=== PATIENT | female | born 1970 | race Caucasian/White ===

== ENCOUNTER 2017-06-17 05:18 | Inpatient (IN) | payer OTHER ==
[2017-06-17 06:32] LABS: URINE BLOOD (Dip) POC 2+ (NEGATIVE); URINE GLUCOSE (Dip) POC Negative (NEGATIVE); URINE KETONES (Dip) POC Negative (NEGATIVE); URINE LEUKOCYTE EST (Dip) POC 3+ (NEGATIVE); URINE NITRITE (Dip) POC Negative (NEGATIVE); URINE TOTAL PROTEIN POC 2+ (NEGATIVE)
[2017-06-17 06:32] LABS: URINE PH (Dip) POC 6.5 (5.0-8.5)
[2017-06-17] MEDS: SOD CHLORIDE 0.9% 1,000 ML IV ×4 (06:49→19:10)
[2017-06-17] MEDS: ONDANSETRON 4 MG INJ IV (06:50)
[2017-06-17] MEDS: KETOROLAC 30 MG INJ IV (06:50)
[2017-06-17 06:59] LABS: ADD MAN DIFF? NO
[2017-06-17 07:00] LABS: WHITE BLOOD COUNT 7.8 10^3/ul (4.8-10.8)
[2017-06-17 07:00] LABS: ABNORMAL IP MESSAGE 1; BASOPHILS % 0.3 % (0.0-2.0); EOSINOPHILS # 0.1 10^3/ul (0.0-0.5); EOSINOPHILS % 1.4 % (0.0-7.0); HEMATOCRIT 29.5 % (37.0-47.0); HEMOGLOBIN 8.4 g/dl (12.0-16.0); LYMPHOCYTES # 1.9 10^3/ul (0.8-2.9); LYMPHOCYTES % 23.8 % (15.0-51.0); MEAN CORPUSCULAR HEMOGLOBIN 17.2 pg (29.0-33.0); MEAN CORPUSCULAR HGB CONC 28.5 g/dl (32.0-37.0); MEAN CORPUSCULAR VOLUME 60.5 fl (82.0-101.0); MEAN PLATELET VOLUME 9.3 fl (7.4-10.4); MONOCYTE # 0.6 10^3/ul (0.3-0.9); MONOCYTES % 7.1 % (0.0-11.0); NEUTROPHIL # 5.2 10^3/ul (1.6-7.5); NEUTROPHILS % 67.1 % (39.0-77.0); PLATELET COUNT 311 10^3/UL (140-415); RED BLOOD COUNT 4.88 10^6/ul (4.20-5.40); RED CELL DISTRIBUTION WIDTH 19.8 % (11.5-14.5)
[2017-06-17 07:04] LABS: POSITIVE DIFF @See below
[2017-06-17 07:17] LABS: ALANINE AMINOTRANSFERASE 24 IU/L (13-69); ALBUMIN 4.4 g/dl (3.3-4.9); ALBUMIN/GLOBULIN RATIO 1.15; ALKALINE PHOSPHATASE 85 IU/L (42-121); AMYLASE 67 U/L (11-123); ANION GAP 16 (8-16); ASPARTATE AMINO TRANSFERASE 21 IU/L (15-46); BLOOD UREA NITROGEN 11 mg/dl (7-20); CALCIUM 10.8 mg/dl (8.4-10.2); CARBON DIOXIDE 24 mmol/L (21-31); CHLORIDE 106 mmol/L (97-110); CREATININE 0.71 mg/dl (0.44-1.00); GLUCOSE 101 mg/dl (70-220); LIPASE 161 U/L (23-300); POTASSIUM 4.1 mmol/L (3.5-5.1); SODIUM 142 mmol/L (135-144); TOTAL PROTEIN 8.2 g/dl (6.1-8.1)
[2017-06-17 07:26] LABS: ADD UMIC YES; UR AMORPHOUS CRYSTAL FEW /HPF (NONE SEEN); UR ASCORBIC ACID NEGATIVE (NEGATIVE); UR BACTERIA MODERATE /HPF (NONE SEEN); UR BILIRUBIN (Dip) NEGATIVE (NEGATIVE); UR BLOOD (Dip) 2+ mg/dL (NEGATIVE); UR CALCIUM OXALATE CRYSTAL MANY /HPF (NONE SEEN); UR CLARITY CLOUDY (CLEAR); UR COLOR YELLOW (YELLOW); UR GLUCOSE (Dip) NEGATIVE (NEGATIVE); UR KETONES (Dip) NEGATIVE (NEGATIVE); UR LEUKOCYTE ESTERASE (Dip) 3+ Leu/ul (NEGATIVE); UR MUCUS FEW /HPF (NONE SEEN); UR NITRITE (Dip) NEGATIVE (NEGATIVE); UR RBC 48 /HPF (0-5); UR SPECIFIC GRAVITY (Dip) 1.013 (1.003-1.030); UR SQUAMOUS EPITHELIAL CELL FEW /HPF (FEW); UR TOTAL PROTEIN (Dip) 2+ mg/dl (NEGATIVE); UR UROBILINOGEN (Dip) NEGATIVE (NEGATIVE); UR WBC > 182 /HPF (0-5)
[2017-06-17] MEDS: morphine 2 MG INJ IV ×2 (07:45→09:29)
[2017-06-17] MEDS: CEFTRIAXONE 1 GM/50 ML (PMX) 50 ML IVPB (09:29)
[2017-06-17] MEDS ORDERED: ONDANSETRON 4 MG INJ IV (10:30)
[2017-06-17] MEDS ORDERED: morphine 2 MG INJ IV (10:30)
[2017-06-17] MEDS ORDERED: ACETAMINOPHEN 325 MG TAB PO (10:30)
[2017-06-17] MEDS: DOCUSATE SODIUM 100 MG CAP PO ×2 (10:48→21:26)
[2017-06-17] MEDS: KETOROLAC 15 MG INJ IV ×3 (10:49→22:49)
[2017-06-17] MEDS: morphine LIQ (10 MG/5 ML) CUP PO (16:46)
[2017-06-17 21:05] LABS: INR 0.91; PROTIME 12.3 Sec (11.9-14.9)
[2017-06-17 21:06] LABS: PARTIAL THROMBOPLASTIN TIME 29.6 Sec (25.0-35.0)
[2017-06-17] MEDS: ACETAMINOPHEN 325 MG TAB PO (21:42)
[2017-06-18] MEDS: SOD CHLORIDE 0.9% 1,000 ML IV ×3 (03:00→15:43)
[2017-06-18] MEDS: KETOROLAC 15 MG INJ IV (04:57)
[2017-06-18 06:37] LABS: ANION GAP 10 (8-16); BLOOD UREA NITROGEN 9 mg/dl (7-20); CALCIUM 9.5 mg/dl (8.4-10.2); CARBON DIOXIDE 24 mmol/L (21-31); CHLORIDE 115 mmol/L (97-110); CREATININE 0.64 mg/dl (0.44-1.00); GLUCOSE 80 mg/dl (70-220); POTASSIUM 3.9 mmol/L (3.5-5.1); SODIUM 145 mmol/L (135-144)
[2017-06-18 07:18] LABS: HEMOGLOBIN A1C 5.7 % (0-5.9)
[2017-06-18] MEDS ORDERED: VITAMIN A & D 5 GM OINT PACKET TOP (08:35)
[2017-06-18 08:36] LABS: WHITE BLOOD COUNT 4.9 10^3/ul (4.8-10.8)
[2017-06-18 08:36] LABS: ABNORMAL IP MESSAGE 1; HEMATOCRIT 24.1 % (37.0-47.0); MEAN CORPUSCULAR HEMOGLOBIN 17.4 pg (29.0-33.0); MEAN CORPUSCULAR HGB CONC 28.6 g/dl (32.0-37.0); MEAN CORPUSCULAR VOLUME 60.7 fl (82.0-101.0); MEAN PLATELET VOLUME 9.5 fl (7.4-10.4); PLATELET COUNT 242 10^3/UL (140-415); RED BLOOD COUNT 3.97 10^6/ul (4.20-5.40); RED CELL DISTRIBUTION WIDTH 19.6 % (11.5-14.5)
[2017-06-18 08:38] LABS: POSITIVE DIFF @See below
[2017-06-18 08:41] LABS: ADD MAN DIFF? YES; HEMOGLOBIN 6.9 g/dl (12.0-16.0)
[2017-06-18] MEDS: MULTIVITAMINS THERAPEUTIC TAB PO (09:01)
[2017-06-18] MEDS: DOCUSATE SODIUM 100 MG CAP PO ×2 (09:01→20:49)
[2017-06-18] MEDS: MAGNESIUM OXIDE 400 MG TAB PO (09:01)
[2017-06-18] MEDS: CEFTRIAXONE 1 GM/50 ML (PMX) 50 ML IVPB (09:02)
[2017-06-18 10:53] LABS: ANISOCYTOSIS 3+ (0-0); BAND NEUTROPHILS % (M) 1 % (0-4); EOSINOPHILS % (M) 2 % (0-7); HYPOCHROMASIA 3+ (0-0); LYMPHOCYTES #M 1.7 10^3/ul (0.8-2.9); LYMPHOCYTES % (M) 36 % (15-51); MICROCYTOSIS 3+ (0-0); MONOCYTE #M 0.3 10^3/ul (0.3-0.9); MONOCYTES % (M) 7 % (0-11); PLATELET ESTIMATE NORMAL; POIKILOCYTOSIS 1+ (0-0); POLYCHROMASIA 1+ (0-0); SEG NEUT #M 2.7 10^3/ul (1.6-7.5); SEGMENTED NEUTROPHILS (M) % 55 % (39-77); SMUDGE%M 5 % (0-0)
[2017-06-18 11:09] LABS: IRON < 10 ug/dl (35-150)
[2017-06-18 11:17] LABS: TOTAL IRON BINDING CAPACITY 348 ug/dl (241-421)
[2017-06-18] MEDS: SOD FERRIC GLUC COMPLX 125 MG in SOD CHLORIDE 0.9% 100 ML IVPB (12:44)
[2017-06-18 14:33] LABS: ADD MAN DIFF? NO
[2017-06-18 14:37] LABS: WHITE BLOOD COUNT 5.3 10^3/ul (4.8-10.8)
[2017-06-18 14:37] LABS: ABNORMAL IP MESSAGE 1; BASOPHILS % 0.2 % (0.0-2.0); EOSINOPHILS # 0.1 10^3/ul (0.0-0.5); EOSINOPHILS % 1.5 % (0.0-7.0); HEMATOCRIT 25.3 % (37.0-47.0); HEMOGLOBIN 7.1 g/dl (12.0-16.0); LYMPHOCYTES % 37.5 % (15.0-51.0); MEAN CORPUSCULAR HGB CONC 28.1 g/dl (32.0-37.0); MEAN CORPUSCULAR VOLUME 60.5 fl (82.0-101.0); MEAN PLATELET VOLUME 9.2 fl (7.4-10.4); MONOCYTE # 0.4 10^3/ul (0.3-0.9); MONOCYTES % 7.9 % (0.0-11.0); NEUTROPHIL # 2.8 10^3/ul (1.6-7.5); NEUTROPHILS % 52.5 % (39.0-77.0); PLATELET COUNT 247 10^3/UL (140-415); RED BLOOD COUNT 4.18 10^6/ul (4.20-5.40); RED CELL DISTRIBUTION WIDTH 19.7 % (11.5-14.5)
[2017-06-18 14:46] LABS: POSITIVE DIFF @See below
[2017-06-18 15:53] LABS: FREE T4 (FREE THYROXINE) 1.16 ng/dl (0.64-1.79)
[2017-06-18 16:07] LABS: THYROID STIMULATING HORMONE 0.925 MIU/L (0.465-4.680)
[2017-06-18 16:09] LABS: IMMEDIATE SPIN CROSSMATCH 1 2
[2017-06-18] MEDS: SOD CHLORIDE 0.9% 250 ML IV* (16:20)
[2017-06-18] MEDS: ACETAMINOPHEN 325 MG TAB PO (19:08)
[2017-06-18] MEDS: LORAZEPAM 2 MG INJ IV (20:50)
[2017-06-18] MEDS ORDERED: NITROGLYCERIN (SL) 0.4 MG TAB SL (21:00)
[2017-06-18 21:44] LABS: TROPONIN-I < 0.012 ng/ml (0.00-0.12)
[2017-06-19 05:40] LABS: ADD MAN DIFF? NO
[2017-06-19 05:43] LABS: WHITE BLOOD COUNT 5.8 10^3/ul (4.8-10.8)
[2017-06-19 05:43] LABS: ABNORMAL IP MESSAGE 1; BASOPHILS % 0.3 % (0.0-2.0); EOSINOPHILS # 0.1 10^3/ul (0.0-0.5); EOSINOPHILS % 2.4 % (0.0-7.0); HEMATOCRIT 27.3 % (37.0-47.0); HEMOGLOBIN 7.8 g/dl (12.0-16.0); LYMPHOCYTES # 2.5 10^3/ul (0.8-2.9); LYMPHOCYTES % 42.3 % (15.0-51.0); MEAN CORPUSCULAR HEMOGLOBIN 18.1 pg (29.0-33.0); MEAN CORPUSCULAR HGB CONC 28.6 g/dl (32.0-37.0); MEAN CORPUSCULAR VOLUME 63.2 fl (82.0-101.0); MEAN PLATELET VOLUME 9.7 fl (7.4-10.4); MONOCYTE # 0.5 10^3/ul (0.3-0.9); MONOCYTES % 9.2 % (0.0-11.0); NEUTROPHIL # 2.7 10^3/ul (1.6-7.5); NEUTROPHILS % 45.5 % (39.0-77.0); PLATELET COUNT 261 10^3/UL (140-415); RED BLOOD COUNT 4.32 10^6/ul (4.20-5.40); RED CELL DISTRIBUTION WIDTH 22.3 % (11.5-14.5)
[2017-06-19 05:46] LABS: POSITIVE DIFF @See below
[2017-06-19] MEDS: SOD CHLORIDE 0.9% 1,000 ML IV ×2 (06:08→18:23)
[2017-06-19 06:09] LABS: ANION GAP 12 (8-16); BLOOD UREA NITROGEN 7 mg/dl (7-20); CALCIUM 9.8 mg/dl (8.4-10.2); CARBON DIOXIDE 24 mmol/L (21-31); CHLORIDE 112 mmol/L (97-110); CREATININE 0.62 mg/dl (0.44-1.00); GLUCOSE 84 mg/dl (70-220); POTASSIUM 3.8 mmol/L (3.5-5.1); SODIUM 144 mmol/L (135-144)
[2017-06-19] MEDS: ACETAMINOPHEN 325 MG TAB PO ×2 (08:21→15:10)
[2017-06-19] MEDS: MAGNESIUM OXIDE 400 MG TAB PO (09:00)
[2017-06-19] MEDS: MULTIVITAMINS THERAPEUTIC TAB PO (09:00)
[2017-06-19] MEDS: DOCUSATE SODIUM 100 MG CAP PO ×2 (09:00→21:12)
[2017-06-19 10:20] LABS: IONIZED CALCIUM 1.5 mmol/L (1.1-1.4)
[2017-06-19] MEDS ORDERED: FENTAnyl 50 MCG/ML VIAL IV (12:00)
[2017-06-19] MEDS ORDERED: ONDANSETRON 4 MG INJ IV (12:00)
[2017-06-19] MEDS ORDERED: DIPHENHYDRAMINE 50 MG INJ IV (12:00)
[2017-06-19] MEDS ORDERED: PROCHLORPERAZINE 10 MG INJ IV (12:00)
[2017-06-19] MEDS ORDERED: HYDROmorphONE (0.2 MG/ML) 10ML SYG IV ×3 (12:00)
[2017-06-19] MEDS ORDERED: FENTAnyl 50 MCG/ML VIAL (12:23)
[2017-06-19] MEDS ORDERED: LIDOCAINE 2% (SDV) 5 ML INJ (12:23)
[2017-06-19] MEDS ORDERED: PROPOFOL 20 ML (12:23)
[2017-06-19] MEDS ORDERED: MIDAZOLAM 1 MG/ML 2 ML INJ (12:23)
[2017-06-19] MEDS ORDERED: ONDANSETRON 4 MG INJ (12:42)
[2017-06-19] MEDS ORDERED: DEXAMETHASONE 4 MG/ML 1 ML INJ (12:42)
[2017-06-19] MEDS ORDERED: FAMOTIDINE 20 MG INJ (12:42)
[2017-06-19] MEDS ORDERED: EPHEDrine SULFATE 50 MG/5 ML SYG (13:00)
[2017-06-19] MEDS: ONDANSETRON 4 MG INJ IV (13:58)
[2017-06-19] MEDS: MEPERIDINE 25 MG INJ IV (13:58)
[2017-06-19] MEDS: CEFTRIAXONE 1 GM/50 ML (PMX) 50 ML IVPB (15:04)
[2017-06-19] MEDS: FERROUS SULFATE (EC) 325 MG TAB PO ×2 (15:10→21:12)
[2017-06-19] MEDS: ASCORBIC ACID 500 MG TAB PO ×2 (15:11→21:12)
[2017-06-19] MEDS: SOD FERRIC GLUC COMPLX 125 MG in SOD CHLORIDE 0.9% 100 ML IVPB (15:48)
[2017-06-19 20:19] LABS: TROPONIN-I < 0.012 ng/ml (0.00-0.12)
[2017-06-19] MEDS: KETOROLAC 15 MG INJ IV (21:17)
[2017-06-20] MEDS: SOD CHLORIDE 0.9% 1,000 ML IV ×2 (01:32→08:59)
[2017-06-20 05:37] LABS: ADD MAN DIFF? NO
[2017-06-20 05:41] LABS: WHITE BLOOD COUNT 10.3 10^3/ul (4.8-10.8)
[2017-06-20 05:41] LABS: ABNORMAL IP MESSAGE 1; BASOPHILS % 0.1 % (0.0-2.0); EOSINOPHILS % 0.3 % (0.0-7.0); HEMATOCRIT 28.2 % (37.0-47.0); HEMOGLOBIN 8.1 g/dl (12.0-16.0); LYMPHOCYTES # 2.6 10^3/ul (0.8-2.9); LYMPHOCYTES % 24.9 % (15.0-51.0); MEAN CORPUSCULAR HEMOGLOBIN 18.2 pg (29.0-33.0); MEAN CORPUSCULAR HGB CONC 28.7 g/dl (32.0-37.0); MEAN CORPUSCULAR VOLUME 63.2 fl (82.0-101.0); MEAN PLATELET VOLUME 9.3 fl (7.4-10.4); MONOCYTE # 0.8 10^3/ul (0.3-0.9); MONOCYTES % 7.3 % (0.0-11.0); NEUTROPHIL # 6.9 10^3/ul (1.6-7.5); NEUTROPHILS % 66.9 % (39.0-77.0); PLATELET COUNT 283 10^3/UL (140-415); RED BLOOD COUNT 4.46 10^6/ul (4.20-5.40); RED CELL DISTRIBUTION WIDTH 22.2 % (11.5-14.5)
[2017-06-20 05:46] LABS: POSITIVE DIFF @See below
[2017-06-20 06:06] LABS: ANION GAP 11 (8-16); BLOOD UREA NITROGEN 11 mg/dl (7-20); CALCIUM 10.2 mg/dl (8.4-10.2); CARBON DIOXIDE 23 mmol/L (21-31); CHLORIDE 110 mmol/L (97-110); CREATININE 0.81 mg/dl (0.44-1.00); GLUCOSE 88 mg/dl (70-220); SODIUM 140 mmol/L (135-144)
[2017-06-20] MEDS: ASCORBIC ACID 500 MG TAB PO (08:54)
[2017-06-20] MEDS: FERROUS SULFATE (EC) 325 MG TAB PO (08:55)
[2017-06-20] MEDS: CEFTRIAXONE 1 GM/50 ML (PMX) 50 ML IVPB (08:55)
[2017-06-20] MEDS: MAGNESIUM OXIDE 400 MG TAB PO (08:55)
[2017-06-20] MEDS: MULTIVITAMINS THERAPEUTIC TAB PO (08:55)
[2017-06-20] MEDS: DOCUSATE SODIUM 100 MG CAP PO (08:55)
[2017-06-20] MEDS: ACETAMINOPHEN 325 MG TAB PO (08:58)
[2017-06-21 17:51] LABS: PTH CALCIUM 9.3 mg/dL (8.6-10.2); PTH CALCIUM 9.5 mg/dL (8.6-10.2)
[2017-06-21 18:36] LABS: PTH INTACT 113 pg/mL (14-64); PTH INTACT 79 pg/mL (14-64)
== END 2017-06-20 13:05 | disposition home or self-care (01) | DRG 690 ==
LOC: FTE 05:18 → MS1 10:23
PROC: 0TF3XZZ Fragmentation in Right Kidney Pelvis, External Approach (ICD-10-PCS; principal; 2017-06-19 12:19)
PROC: 30233N1 Transfusion of Nonautologous Red Blood Cells into Peripheral Vein, Percutaneous Approach (ICD-10-PCS; 2017-06-19 12:19)
DX: N13.6 Pyonephrosis (principal); E83.52 Hypercalcemia; K80.20 Calculus of gallbladder without cholecystitis without obstruction; Z87.442 Personal history of urinary calculi; D50.9 Iron deficiency anemia, unspecified; B96.20 Unspecified Escherichia coli [E. coli] as the cause of diseases classified elsewhere
CPT/HCPCS: 36430; 71045; 74018; 74176; 80048; 80053; 81001; 81003; 82150; 82330; 83036; 83540; 83690; 83735; 83970; 84439; 84443; 84484; 85025; 85610; 85730; 86850; 86900; 86901; 86920; 87086; 93005

== ENCOUNTER 2018-02-02 10:44 | Day surgery (SDC) | payer OTHER ==
[2018-02-02] MEDS ORDERED: CEFAZOLIN 1 GM INJ (11:34)
[2018-02-02] MEDS ORDERED: PROPOFOL 20 ML (11:34)
[2018-02-02] MEDS ORDERED: ROCURONIUM 50 MG INJ ×2 (11:34→13:55)
[2018-02-02] MEDS ORDERED: MIDAZOLAM 1 MG/ML 2 ML INJ (11:34)
[2018-02-02] MEDS ORDERED: FENTAnyl 50 MCG/ML VIAL ×4 (11:34→17:48)
[2018-02-02] MEDS: CEFAZOLIN 1 GM/50 ML (PMX) 50 ML IVPB (12:30)
[2018-02-02] MEDS ORDERED: DIPHENHYDRAMINE 50 MG INJ IV (12:30)
[2018-02-02] MEDS ORDERED: LABETALOL HCL 20MG INJ IV (12:30)
[2018-02-02] MEDS ORDERED: FENTAnyl 50 MCG/ML VIAL IV ×4 (12:30→18:00)
[2018-02-02] MEDS ORDERED: EPHEDrine SULFATE 50 MG/5 ML SYG IV (12:30)
[2018-02-02] MEDS ORDERED: HYDROmorphONE 1 MG/5 ML IV SYRINGE IV ×3 (12:30)
[2018-02-02] MEDS ORDERED: OXYCODONE/ACETAMINOPHEN (5/325) TAB PO ×2 (12:30)
[2018-02-02] MEDS ORDERED: hydrALAzine 20 MG INJ IV (12:30)
[2018-02-02] MEDS ORDERED: MEPERIDINE 25 MG INJ IV (12:30)
[2018-02-02] MEDS ORDERED: ONDANSETRON 4 MG INJ IV ×2 (12:30→18:00)
[2018-02-02 12:34] LABS: ADD UMIC YES; UR ASCORBIC ACID NEGATIVE (NEGATIVE); UR BACTERIA FEW /HPF (NONE SEEN); UR BILIRUBIN (Dip) NEGATIVE (NEGATIVE); UR BLOOD (Dip) 3+ mg/dL (NEGATIVE); UR CLARITY CLEAR (CLEAR); UR COLOR YELLOW (YELLOW); UR GLUCOSE (Dip) NEGATIVE (NEGATIVE); UR KETONES (Dip) NEGATIVE (NEGATIVE); UR LEUKOCYTE ESTERASE (Dip) 1+ Leu/ul (NEGATIVE); UR NITRITE (Dip) NEGATIVE (NEGATIVE); UR RBC 2 /HPF (0-5); UR TOTAL PROTEIN (Dip) NEGATIVE (NEGATIVE); UR UROBILINOGEN (Dip) NEGATIVE (NEGATIVE); UR WBC 8 /HPF (0-5)
[2018-02-02] MEDS: OXYMETAZOLINE 0.05% 15 ML NAS SPRAY NASAL (12:41)
[2018-02-02] MEDS: LIDOCAINE 1%/EPI 30 ML INJ (12:41)
[2018-02-02] MEDS ORDERED: DEXAMETHASONE 4 MG/ML 1 ML INJ (13:11)
[2018-02-02] MEDS ORDERED: ONDANSETRON 4 MG INJ ×2 (13:11→17:48)
[2018-02-02] MEDS ORDERED: METOCLOPRAMIDE 10 MG INJ (13:11)
[2018-02-02] MEDS ORDERED: GLYCOPYRROLATE 0.4 MG INJ (13:39)
[2018-02-02] MEDS ORDERED: NEOSTIGMINE 3 MG/3 ML SYRINGE (13:39)
[2018-02-02] MEDS ORDERED: ACETAMINOPHEN 1000MG/100ML IV 100 ML (15:15)
[2018-02-02] MEDS ORDERED: BACITRACIN/POLYMYXIN 28.35 GM OINT TOP (15:48)
[2018-02-02] MEDS: BACITRACIN/POLYMYXIN 0.9 GM OINT TOP (15:54)
[2018-02-02] MEDS: FENTAnyl 50 MCG/ML VIAL IV ×2 (18:00→19:33)
[2018-02-02] MEDS ORDERED: NEOMYC/POLYMYX/BACIT 30 GM OINT TOP (19:00)
[2018-02-02] MEDS: NEOMYC/POLYMYX/BACIT 30 GM OINT TOP (19:32)
[2018-02-02] MEDS: METOCLOPRAMIDE 10 MG INJ IV (19:32)
== END 2018-02-02 19:53 | disposition home or self-care (01) ==
LOC: SDS 10:44
DX: D35.1 Benign neoplasm of parathyroid gland (principal); J34.2 Deviated nasal septum; J34.3 Hypertrophy of nasal turbinates
CPT/HCPCS: 30140; 81001; 88307; 88331

== ENCOUNTER 2018-02-23 13:52 | Inpatient (IN) | payer OTHER ==
[2018-02-23 15:02] LABS: ADD MAN DIFF? NO
[2018-02-23 15:18] LABS: BASOPHILS % 0.2 % (0.0-2.0); EOSINOPHILS % 0.2 % (0.0-7.0); HEMATOCRIT 32.9 % (37.0-47.0); HEMOGLOBIN 9.8 g/dl (12.0-16.0); LYMPHOCYTES # 1.4 10^3/ul (0.8-2.9); LYMPHOCYTES % 10.9 % (15.0-51.0); MEAN CORPUSCULAR HEMOGLOBIN 19.6 pg (29.0-33.0); MEAN CORPUSCULAR HGB CONC 29.8 g/dl (32.0-37.0); MEAN CORPUSCULAR VOLUME 65.7 fl (82.0-101.0); MEAN PLATELET VOLUME 9.6 fl (7.4-10.4); MONOCYTE # 1.1 10^3/ul (0.3-0.9); MONOCYTES % 8.3 % (0.0-11.0); NEUTROPHIL # 10.4 10^3/ul (1.6-7.5); PLATELET COUNT 291 10^3/UL (140-415); RED BLOOD COUNT 5.01 10^6/ul (4.20-5.40); RED CELL DISTRIBUTION WIDTH 17.8 % (11.5-14.5)
[2018-02-23 15:36] LABS: INR 0.99; PROTIME 13.2 Sec (11.9-14.9)
[2018-02-23 15:37] LABS: BLOOD UREA NITROGEN 11 mg/dl (7-20); CALCIUM 9.4 mg/dl (8.4-10.2); CARBON DIOXIDE 21 mmol/L (21-31); CHLORIDE 106 mmol/L (97-110); GLUCOSE 105 mg/dl (70-220); PARTIAL THROMBOPLASTIN TIME 32.6 Sec (23.0-35.0); POTASSIUM 3.7 mmol/L (3.5-5.1); SODIUM 137 mmol/L (135-144)
[2018-02-23] MEDS: ACETAMINOPHEN 325 MG TAB PO (15:37)
[2018-02-23] MEDS: CEFEPIME 2GM/50 ML (PMX) 50 ML IVPB (15:37)
[2018-02-23] MEDS: SODIUM CHLORIDE 0.9% 1L BAG IV* (15:38)
[2018-02-23 15:48] LABS: TROPONIN-I < 0.012 ng/ml (0.000-0.120)
[2018-02-23 15:50] LABS: IONIZED CALCIUM 1.2 mmol/L (1.1-1.4)
[2018-02-23 16:03] LABS: ADD UMIC YES; UR ASCORBIC ACID NEGATIVE (NEGATIVE); UR BACTERIA MODERATE /HPF (NONE SEEN); UR BILIRUBIN (Dip) NEGATIVE (NEGATIVE); UR BLOOD (Dip) 2+ mg/dL (NEGATIVE); UR CLARITY CLOUDY (CLEAR); UR COLOR YELLOW (YELLOW); UR GLUCOSE (Dip) NEGATIVE (NEGATIVE); UR KETONES (Dip) TRACE mg/dL (NEGATIVE); UR LEUKOCYTE ESTERASE (Dip) 3+ Leu/ul (NEGATIVE); UR MUCUS FEW /HPF (NONE SEEN); UR NITRITE (Dip) POSITIVE (NEGATIVE); UR RBC 45 /HPF (0-5); UR SPECIFIC GRAVITY (Dip) 1.015 (1.003-1.030); UR SQUAMOUS EPITHELIAL CELL MODERATE /HPF (FEW); UR TOTAL PROTEIN (Dip) 2+ mg/dl (NEGATIVE); UR UROBILINOGEN (Dip) NEGATIVE (NEGATIVE); UR WBC > 182 /HPF (0-5)
[2018-02-23] MEDS: VANCOMYCIN 1 GM (PMX) 250 ML IVPB (16:49)
[2018-02-23] MEDS: IBUPROFEN 800 MG TAB PO (18:48)
[2018-02-23] MEDS: SOD CHLORIDE 0.9% 1,000 ML IV ×2 (19:42→22:01)
[2018-02-23] MEDS ORDERED: ONDANSETRON 4 MG INJ IV (20:30)
[2018-02-23] MEDS ORDERED: ACETAMINOPHEN 325 MG TAB PO (20:30)
[2018-02-23] MEDS ORDERED: BISACODYL (EC) 5 MG TAB PO (22:00)
[2018-02-23] MEDS ORDERED: NACL 0.9% 3 ML SYG IV (22:00)
[2018-02-23] MEDS ORDERED: HYDROmorphONE 0.5 MG/0.5 ML SYG IV (22:00)
[2018-02-23] MEDS ORDERED: DOCUSATE SODIUM 100 MG CAP PO (22:00)
[2018-02-24 00:08] LABS: LACTIC ACID 0.5 mmol/L (0.5-2.0)
[2018-02-24] MEDS: ACETAMINOPHEN 325 MG TAB PO ×3 (00:53→11:38)
[2018-02-24] MEDS: LEVOFLOXACIN 750MG/D5W (PMX) 150 ML IVPB ×2 (01:12→23:07)
[2018-02-24] MEDS ORDERED: LORAZEPAM 2 MG INJ (02:51)
[2018-02-24] MEDS: ONDANSETRON 4 MG INJ IV ×2 (02:53→15:19)
[2018-02-24] MEDS: LORAZEPAM 2 MG INJ IV (02:58)
[2018-02-24] MEDS ORDERED: ALBUTEROL/IPRATROPIUM (NEB) 3 ML AMP HHN (03:00)
[2018-02-24 10:04] LABS: ANION GAP 10 (5-13)
[2018-02-24] MEDS: SOD CHLORIDE 0.9% 1,000 ML IV ×2 (11:07→23:05)
[2018-02-24] MEDS: ZOLPIDEM 5 MG TAB PO ×2 (15:22→23:04)
[2018-02-24 16:02] LABS: ADD MAN DIFF? NO
[2018-02-24 16:05] LABS: BASOPHILS % 0.1 % (0.0-2.0); EOSINOPHILS % 0.2 % (0.0-7.0); HEMATOCRIT 27.1 % (37.0-47.0); HEMOGLOBIN 7.9 g/dl (12.0-16.0); LYMPHOCYTES # 1.4 10^3/ul (0.8-2.9); LYMPHOCYTES % 15.8 % (15.0-51.0); MEAN CORPUSCULAR HEMOGLOBIN 19.7 pg (29.0-33.0); MEAN CORPUSCULAR HGB CONC 29.2 g/dl (32.0-37.0); MEAN CORPUSCULAR VOLUME 67.6 fl (82.0-101.0); MONOCYTE # 0.8 10^3/ul (0.3-0.9); MONOCYTES % 8.9 % (0.0-11.0); NEUTROPHIL # 6.4 10^3/ul (1.6-7.5); NEUTROPHILS % 74.3 % (39.0-77.0); PLATELET COUNT 192 10^3/UL (140-415); RED BLOOD COUNT 4.01 10^6/ul (4.20-5.40); RED CELL DISTRIBUTION WIDTH 17.9 % (11.5-14.5)
[2018-02-24 16:05] LABS: WHITE BLOOD COUNT 8.6 10^3/ul (4.8-10.8)
[2018-02-24 16:28] LABS: HEMOGLOBIN A1C 5.6 % (0-5.9)
[2018-02-24 16:29] LABS: ALANINE AMINOTRANSFERASE 16 IU/L (13-69); ALBUMIN 3.2 g/dl (3.3-4.9); ALKALINE PHOSPHATASE 63 IU/L (42-121); ANION GAP 9 (5-13); ASPARTATE AMINO TRANSFERASE 12 IU/L (15-46); BILIRUBIN,INDIRECT 0.3 mg/dl (0-1.1); BILIRUBIN,TOTAL 0.3 mg/dl (0.2-1.3); BLOOD UREA NITROGEN 6 mg/dl (7-20); CALCIUM 7.9 mg/dl (8.4-10.2); CARBON DIOXIDE 19 mmol/L (21-31); CHLORIDE 110 mmol/L (97-110); CHOL/HDL RATIO 3.6 RATIO; CHOLESTEROL 146 mg/dl (100-200); CREATININE 0.62 mg/dl (0.44-1.00); GLUCOSE 98 mg/dl (70-220); HDL CHOLESTEROL 40 mg/dl (34-88); LDL CHOLESTEROL,CALCULATED 88 mg/dl; MAGNESIUM 1.8 mg/dl (1.7-2.5); SODIUM 138 mmol/L (135-144); TOTAL PROTEIN 6.4 g/dl (6.1-8.1); TRIGLYCERIDES 90 mg/dl (0-149)
[2018-02-24 16:33] LABS: IRON < 10 ug/dl (35-150)
[2018-02-24 16:36] LABS: TOTAL IRON BINDING CAPACITY 341 ug/dl (241-421)
[2018-02-24] MEDS: IBUPROFEN 400 MG TAB PO (16:43)
[2018-02-24 17:24] LABS: THYROID STIMULATING HORMONE 0.294 MIU/L (0.465-4.680)
[2018-02-24 17:28] LABS: FERRITIN 25.5 ng/ml (6.2-137.0)
[2018-02-24] MEDS: FERROUS FUMARATE (SR) TAB PO (21:39)
[2018-02-25] MEDS: FERROUS FUMARATE (SR) TAB PO (09:03)
[2018-02-25] MEDS: ACETAMINOPHEN 325 MG TAB PO (10:34)
[2018-02-25] MEDS: SOD CHLORIDE 0.9% 1,000 ML IV ×2 (11:07→15:03)
[2018-02-25 13:16] LABS: ADD MAN DIFF? NO
[2018-02-25 13:22] LABS: BASOPHILS % 0.2 % (0.0-2.0); EOSINOPHILS # 0.1 10^3/ul (0.0-0.5); EOSINOPHILS % 1.3 % (0.0-7.0); HEMATOCRIT 24.5 % (37.0-47.0); HEMOGLOBIN 7.3 g/dl (12.0-16.0); LYMPHOCYTES # 1.7 10^3/ul (0.8-2.9); LYMPHOCYTES % 31.9 % (15.0-51.0); MEAN CORPUSCULAR HEMOGLOBIN 19.9 pg (29.0-33.0); MEAN CORPUSCULAR HGB CONC 29.8 g/dl (32.0-37.0); MEAN CORPUSCULAR VOLUME 66.8 fl (82.0-101.0); MEAN PLATELET VOLUME 9.6 fl (7.4-10.4); MONOCYTE # 0.8 10^3/ul (0.3-0.9); MONOCYTES % 14.5 % (0.0-11.0); NEUTROPHIL # 2.8 10^3/ul (1.6-7.5); NEUTROPHILS % 51.9 % (39.0-77.0); PLATELET COUNT 173 10^3/UL (140-415); RED BLOOD COUNT 3.67 10^6/ul (4.20-5.40)
[2018-02-25 13:22] LABS: WHITE BLOOD COUNT 5.4 10^3/ul (4.8-10.8)
[2018-02-25 13:42] LABS: ANION GAP 9 (5-13); BLOOD UREA NITROGEN 6 mg/dl (7-20); CALCIUM 8.1 mg/dl (8.4-10.2); CARBON DIOXIDE 21 mmol/L (21-31); CHLORIDE 112 mmol/L (97-110); CREATININE 0.53 mg/dl (0.44-1.00); GLUCOSE 109 mg/dl (70-220); MAGNESIUM 1.9 mg/dl (1.7-2.5); POTASSIUM 3.3 mmol/L (3.5-5.1); SODIUM 142 mmol/L (135-144)
[2018-02-25] MEDS: ARTIFICIAL TEARS 15 ML OPH BOTH EYES (14:04)
[2018-02-25] MEDS: POTASSIUM CHLORIDE (SR) 10 MEQ TAB PO (14:59)
== END 2018-02-25 16:40 | disposition home or self-care (01) | DRG 871 ==
LOC: E/R 13:52 → PP2 20:05
PROVIDERS: Family Medicine
DX: A41.9 Sepsis, unspecified organism (principal); J18.9 Pneumonia, unspecified organism; N10 Acute pyelonephritis; D50.9 Iron deficiency anemia, unspecified; B96.20 Unspecified Escherichia coli [E. coli] as the cause of diseases classified elsewhere; Z87.442 Personal history of urinary calculi
CPT/HCPCS: 36415; 71045; 71250; 74176; 80048; 80053; 80061; 81001; 81025; 82330; 82728; 83036; 83540; 83605; 83735; 84443; 84484; 85025; 85610; 85730; 87040; 87086; 87400; 93005; 96374; 96375; 99291-25